=== PATIENT | male | born 1955 | race American Indian/Alaskan Native ===

== ENCOUNTER 2017-08-22 23:43 | Emergency (ER) | payer OTHER ==
[2017-08-22 23:44] VITALS: BMI 38.4
--- NOTE | 2017-08-23 02:04 | C.PDOC ---
History Of Present Illness 62 year old male with a Hx of poliomyelitis, homelessness, cellulitis, PVD, and ETOH abuse presents to the ER with a complaint of pain to the bilateral ankle, right more than left, and feels like he has numbness to the right ankle. Patient ambulate with a cane and uses a walking boot. Denies recent trauma or injury. Time Seen by Provider: 08/23/17 00:16 Chief Complaint (Nursing): Lower Extremity Problem/Injury History Per: Patient History/Exam Limitations: no limitations Onset/Duration Of Symptoms: Days Current Symptoms Are (Timing): Still Present Recent travel outside of the [place]: No Past Medical History Reviewed: Historical Data, Nursing Documentation, Vital Signs Vital Signs: Last Vital Signs Temp 97.6 F 08/23/17 05:27 Pulse 77 08/23/17 05:27 Resp 20 08/23/17 05:27 BP 113/69 08/23/17 05:27 Pulse Ox 95 08/23/17 05:27 - Medical History PMH: Bronchitis, Pneumonia Surgical History: Cholecystectomy, Hernia Repair (ventral repair and subsequent rupture), Tonsillectomy - [facility] EXERCISE TRMT MUSCULOSK LOW BACK/LE W ASSIST EQUIP (05/28/16) GAIT TRAINING/AMBULAT TREATMENT USING ASSIST EQUIPMENT (05/28/16) HOME MANAGEMENT TREATMENT USING ASSIST EQUIPMENT (05/28/16) INTRODUCE OF OTH ANTI-INFECT INTO PERIPH VEIN, PERC APPROACH (05/28/16) INTRODUCTION OF SERUM/TOX/VACCINE INTO MUSCLE, PERC APPROACH (01/20/16) RELEASE PERITONEUM, OPEN APPROACH (03/28/15) REPAIR ABDOMINAL WALL, OPEN APPROACH (03/28/15) REPAIR SIGMOID COLON, OPEN APPROACH (03/28/15) VACCINATION NEC (10/14/14) Family History: States: Unknown Family Hx - Social History Hx Tobacco Use: Yes Hx Alcohol Use: No Hx Substance Use: Yes Review Of Systems Constitutional: Negative for: Fever Musculoskeletal: Positive for: Foot Pain (Bilateral ankles, right more than left ) Neurological: Positive for: Numbness (right foot) Physical Exam - Physical Exam Appears: Non-toxic, Unkempt, Other (Obese, Sleepy) Skin: Warm, Dry Head: Atraumatic, Normacephalic Eye(s): bilateral: Normal Inspection, EOMI Oral Mucosa: Moist, Other (+AOB) Neck: Normal ROM Chest: Symmetrical Cardiovascular: Rhythm Regular, No Murmur Respiratory: Normal Breath Sounds, No Wheezing Gastrointestinal/Abdominal: Soft, Other (Obese) Extremity: No Tenderness, Pedal Edema (Bilateral feet to mid calf), Deformity ( Chronic right ankle), Other (Superficial ulcer to left 2nd toe, no drainage. Very dry and scaly skin to bilateral feet, intradigitally. Foul odor to bilateral feet.) Pulses: Left Dorsalis Pedis: Decreased (3/4), Right Dorsalis Pedis: Decreased (2 /4) Neurological/Psych: Oriented x3, Normal Speech Gait: With Assistance ED Course And Treatment - Laboratory Results Result Diagrams: 08/23/17 02:32 08/23/17 02:32 O2 Sat by Pulse Oximetry: 97 (Room air) Pulse Ox Interpretation: Normal Medical Decision Making Medical Decision Making: When patient came in initially, he had ysabel bandages wrapped tightly around both legs and walking boot on right ankle. All items removed Plan: * Blood work * Urinalysis * Ankle x-ray Progress: Labs reviewed with no acute changes from prior visits. Prior records show patient is homeless and noncompliant with care and continues to abuse alcohol. Patient was observed to sleep in ED for hours. In the morning patient was alert and awake without fever or any acute distress. I explained to patient he needs to follow up in the clinic. Patient was given fresh pair of socks and walking boot reapplied. He is stable for discharge Disposition Counseled Patient/Family Regarding: Studies Performed, Diagnosis, Need For Followup - Disposition Referrals: [facility] [Outside] Disposition: HOME/ ROUTINE Disposition Time: 05:35 Condition: STABLE Additional Instructions: Follow up with the clinic in 2-5 days for further evaluation. Take medications as prescribed. Return to the emergency department at any time if symptoms persist or worsen. You may call [facility] for any assistance . Instructions: Dependent Edema (DC), Alcohol Abuse and Alcoholism (DC) Forms: [facility] ([place]zeri) - POA Present On Arrival: None - Clinical Impression Clinical Impression: Lower extremity edema, Alcohol abuse, Ankle pain - PA / MANAGER PHOTOGRAPHY / Resident Statement MD/DO has reviewed & agrees with the documentation as recorded. - Scribe Statement The provider has reviewed the documentation as recorded by the Brittanypaolo Bowers All medical record entries made by the David were at my direction and personally dictated by me. I have reviewed the chart and agree that the record accurately reflects my personal performance of the history, physical exam, medical decision making, and the department course for this patient. I have also personally directed, reviewed, and agree with the discharge instructions and disposition.
[2017-08-23 02:36] LABS: BASO # 0.1 K/uL (0.0-0.2); BASO % 1.5 % (0.0-2.0); EOS # 0.3 K/uL (0.0-0.7); EOS % 4.2 % (0.0-4.0); HEMOGLOBIN 11.7 g/dL (12.0-18.0); LYMPH # 2.2 K/uL (1.0-4.3); LYMPH % 34.8 % (20.0-40.0); MEAN CELL VOLUME 84.5 fL (80.0-94.0); MEAN CORPUSCULAR HEMOGLOBIN 28.8 pg (27.0-31.0); MEAN PLATELET VOLUME 7.4 fL (7.2-11.7); MONO # 0.3 K/uL (0.0-0.8); MONO % 4.8 % (0.0-10.0); NEUT # 3.5 K/uL (1.8-7.0); NEUT % 54.7 % (50.0-75.0); RBC 4.06 Mil/uL (4.40-5.90); RED CELL DISTRIBUTION WIDTH 14.2 % (11.5-14.5); WHITE BLOOD COUNT 6.3 K/uL (4.8-10.8)
[2017-08-23 02:52] LABS: CALCIUM 8.3 mg/dl (8.6-10.4); GFR AFRICAN-AMERICAN > 60; GFR NON-AFRICAN AMERICAN > 60
[2017-08-23 02:54] LABS: ALB/GLOB RATIO 1.1 (1.0-2.1); ALBUMIN 3.9 g/dL (3.5-5.0); ALT/SGPT 11 U/L (21-72); AST/SGOT 42 U/L (17-59); BLOOD UREA NITROGEN 22 mg/dL (9-20)
[2017-08-23 02:57] LABS: URINE BILIRUBIN NEGATIVE (NEGATIVE); URINE BLOOD NEGATIVE (NEGATIVE); URINE CLARITY Clear (Clear); URINE COLOR Yellow (YELLOW); URINE GLUCOSE (UA) NORMAL (Normal); URINE LEUKOCYTE ESTERASE NEG Leu/uL (Negative); URINE PROTEIN NEGATIVE (NEGATIVE)
[2017-08-23 02:59] LABS: B-TYPE NATRIURETIC PEPTIDE 15.9 pg/mL (0-900)
[2017-08-23 03:03] LABS: BARBITURATES, UR NEGATIVE (NEGATIVE); BENZODIAZEPINES, UR NEGATIVE (NEGATIVE); OPIATES, UR NEGATIVE (NEGATIVE); PHENCYCLIDINE, UR NEGATIVE (NEGATIVE)
[2017-08-23 05:01] VITALS: TEMP 97.6
[2017-08-23 05:30] VITALS: BP 113/69; PULSE 77; RESP 20
[2017-08-23 05:35] VITALS: O2SAT 97
--- NOTE | 2017-08-23 07:12 | RAD ---
PROCEDURE: Right Ankle Radiographs. HISTORY: pain h.o fx COMPARISON: None FINDINGS: BONES: Pes planus is identified with development of Charcot joint in question. The superior margins of the calcaneus appear inseparable from the talus and fusion is in question versus gross posttraumatic deformity. Gross degenerative changes are appreciated at the tarsal tarsal and tarsal calcaneal joints. Degenerative change are also prominent the tibiotalar joint. The ankle mortise grossly appears intact. No subluxation or dislocation is appreciable. There is significant osteopenia suggesting osteoporosis, which limit the identification nondisplaced fractures. JOINTS: As above. SOFT TISSUES: There is diffuse soft tissue edema throughout the right ankle in the visualized foot in particular. OTHER FINDINGS: None. IMPRESSION: A Charcot joint of the hindfoot is in question with advanced degenerative changes throughout the ankle and visualized foot joints. Soft tissue edema is relatively prominent throughout the ankle and visualized foot as well. Calcaneus and talus are inseparable raising question of fusion. Fractures involving these 2 structures is a possibility. CT or MRI may be useful for better characterization of potential fractures than radiography given diffuse osteopenia. No subluxation or dislocation identified. Pes planus.
== END 2017-08-23 05:54 | disposition home or self-care (01) ==
LOC: C.ER 23:43
DX: R60.0 Localized edema (principal); F10.10 Alcohol abuse, uncomplicated; Y90.7 Blood alcohol level of 200-239 mg/100 ml; M25.571 Pain in right ankle and joints of right foot; Z59.0 Homelessness; Z91.19 Patient's noncompliance with other medical treatment and regimen